=== PATIENT | male | born 1985 | race Caucasian/White ===

== ENCOUNTER 2016-09-20 16:52 | Emergency (ER) | payer SELFPAY ==
[~2016-09-20] VITALS: Ht 182.9 cm; Wt 87.3 kg
[2016-09-20] MEDS ORDERED: MOTRIN800 MG PO (20:39)
[2016-09-20] MEDS ORDERED: PERCOCET 5/31 TABLET PO (20:40)
[2016-09-20 20:57] VITALS: BP 132/76
== END 2016-09-20 20:58 | disposition home or self-care (01) ==
LOC: EME 16:52
PROC: 2W3JX1Z Immobilization of Right Finger using Splint (ICD-10-PCS; principal; 2016-09-20)
DX: S62.614A Displaced fracture of proximal phalanx of right ring finger, initial encounter for closed fracture (principal); W18.09XA Striking against other object with subsequent fall, initial encounter; Y92.008 Other place in unspecified non-institutional (private) residence as the place of occurrence of the external cause
CPT/HCPCS: 73140; 99281; 99285